=== PATIENT | male | born 1980 | race Caucasian/White ===

== ENCOUNTER 2016-10-10 21:32 | Emergency (ER) | payer BC ==
[~2016-10-10] VITALS: Ht 180.3 cm; Wt 78.2 kg
[2016-10-10 21:39] VITALS: BP 123/84; PULSE 85; RESP 16; TEMP 98.4; O2SAT 96
[2016-10-10] MEDS ORDERED: PRIL20CA9 PO (21:55)
[2016-10-10] MEDS ORDERED: CARA1TAB6 PO (22:14)
--- NOTE | 2016-10-10 22:15 | PD ---
HPI Chief Complaint: Abdominal Pain Time Seen by Provider: 22:02 Travel History International Travel<30 days: No Contact w/Intl Traveler<30days: No Traveled to known affect area: No History of Present Illness HPI This 35-year-old male has been having left upper quadrant pain about 2 weeks. He has been getting worse. She has nausea and occasionally vomits. He does say that under extraordinary amount of stress. He has been having family issues. Last week he went to [facility] and had a CT scan and blood work done and he was told that everything was normal. He has taken Prilosec for years because of acid reflux. He has been taking some ibuprofen sporadically. There has not been any dark stools. [facility] Past Medical History GERD: Yes Tetanus Vaccination: > 5 Years Influenza Vaccination: No Past Surgical History Surgical History: No Previous Surgery Social History Alcohol Use: Yes Tobacco Use: Yes Substance Use: No Allergies-Medications (Allergen,Severity, Reaction): Coded Allergies: Sulfa (Verified Allergy, Severe, Anaphylaxis, 10/10/16) Reported Meds & Prescriptions Reported Meds & Active Scripts Active Reported Prilosec (Omeprazole) 20 Mg Cap 20 Mg PO DAILY Review of Systems General / Constitutional: No: Fever, Chills Eyes: No: Diploplia, Blurred Vision HENT: No: Headaches, Vertigo Cardiovascular: No: Chest Pain or Discomfort, Palpitations Respiratory: No: Cough Gastrointestinal: Positive: Nausea, Abdominal Pain Genitourinary: No: Urgency, Frequency Musculoskeletal: No: Myalgias Skin: No Rash Neurologic: Positive: Dizziness, No: Focal Abnormalities Endocrine: No: Heat Intolerance Physical Exam Narrative GENERAL: Well-developed male SKIN: Warm and dry. HEAD: Atraumatic. Normocephalic. EYES: Pupils equal and round. No scleral icterus. No injection or drainage. ENT: No nasal bleeding or discharge. Mucous membranes pink and moist. NECK: Trachea midline. No JVD. CARDIOVASCULAR: Regular rate and rhythm. No murmur appreciated. RESPIRATORY: No accessory muscle use. Clear to auscultation. Breath sounds equal bilaterally. GASTROINTESTINAL: Abdomen soft, non-tender, nondistended. Hepatic and splenic margins not palpable. MUSCULOSKELETAL: No obvious deformities. No clubbing. No cyanosis. No edema. NEUROLOGICAL: Awake and alert. No obvious cranial nerve deficits. Motor grossly within normal limits. Normal speech. PSYCHIATRIC: Appropriate mood and affect; insight and judgment normal. Data Data Last Documented VS Vital Signs Date Time Temp Pulse Resp B/P Pulse Ox O2 Delivery O2 Flow Rate FiO2 10/10/16 21:39 98.4 85 16 123/84 96 MDM Medical Decision Making Medical Screen Exam Complete: Yes Emergency Medical Condition: Yes Medical Record Reviewed: Yes Differential Diagnosis Differential includes ulcer disease, splenic abnormality, gastritis Narrative Course Patient had a CT scan done last week and this was secondary to splenic abnormality or expected that would problem. His symptoms are suggestive of ulcer disease. I recommended that he increase his Prilosec to 20 twice a day and I will add Carafate to his regimen. Diagnosis Primary Impression: PUD (peptic ulcer disease) Additional Instructions: Increase Prilosec to twice daily Scripts Sucralfate (Carafate)1 Gm Tab1 Gm PO TID #90 TAB Ref 0 On empty stomach Prov:Garcia Fairchild MD 10/10/16 Disposition: 01 DISCHARGE HOME Condition: Stable Garcia Fairchild MD Oct 10, 2016 22:15
== END 2016-10-10 22:20 | disposition home or self-care (01) ==
LOC: PHED 21:32 → PHEFT 22:20
DX: K27.9 Peptic ulcer, site unspecified, unspecified as acute or chronic, without hemorrhage or perforation (principal); K21.9 Gastro-esophageal reflux disease without esophagitis; Z72.0 Tobacco use
CPT/HCPCS: 99283

== ENCOUNTER 2017-01-16 13:26 | Emergency (ER) | payer BC ==
[~2017-01-16] VITALS: Ht 180.3 cm; Wt 74.7 kg
[~2017-01-16 13:26] MED LIST: CARA1TAB6 PO; PRIL20CA9 PO
[2017-01-16 13:31] VITALS: BP 107/64; PULSE 106; RESP 18; TEMP 99.3; O2SAT 95
[2017-01-16] MEDS ORDERED: OMEP40CA2 PO (13:45)
[2017-01-16] MEDS ORDERED: AUGM875T3 PO (14:37)
--- NOTE | 2017-01-16 14:37 | PD ---
HPI Chief Complaint: Cold / Flu Symptoms Time Seen by Provider: 14:00 Travel History International Travel<30 days: No Contact w/Intl Traveler<30days: No Traveled to known affect area: No History of Present Illness HPI 36-year-old male presents emergency department for evaluation of sore throat. Patient reports proximately week ago he had an upper respiratory infection which included nasal congestion, sore throat and cough. He reports he woke up this morning and his throat was acutely painful. Severity 5 out of 10. He reports he has pain with swallowing but is not having difficulty eating or drinking. Denies change in voice. Reports subjective fevers. [facility] Past Medical History Medical History: Denies Significant Hx Diminished Hearing: No GERD: Yes Tetanus Vaccination: Unknown Social History Alcohol Use: Yes Tobacco Use: Yes Substance Use: No Allergies-Medications (Allergen,Severity, Reaction): Coded Allergies: Sulfa (Verified Allergy, Severe, Anaphylaxis, 10/10/16) Reported Meds & Prescriptions Reported Meds & Active Scripts Active Reported Omeprazole 40 Mg Cap 40 Mg PO DAILY Review of Systems Except as stated in HPI: all other systems reviewed are Neg Physical Exam Narrative GENERAL: Alert, well-appearing male nontoxic-appearing SKIN: Focused skin assessment warm/dry. HEAD: Atraumatic. Normocephalic. EYES: Pupils equal and round. No scleral icterus. No injection or drainage. ENT: No nasal bleeding or discharge. Mucous membranes pink and moist. Oropharynx erythema with tonsillar swelling and exudate equal bilaterally. NECK: Trachea midline. No JVD. CARDIOVASCULAR: Regular rate and rhythm. No murmur appreciated. RESPIRATORY: No accessory muscle use. Clear to auscultation. Breath sounds equal bilaterally. GASTROINTESTINAL: Abdomen soft, non-tender, nondistended. Hepatic and splenic margins not palpable. MUSCULOSKELETAL: No obvious deformities. No clubbing. No cyanosis. No edema. NEUROLOGICAL: Awake and alert. No obvious cranial nerve deficits. Motor grossly within normal limits. Normal speech. PSYCHIATRIC: Appropriate mood and affect; insight and judgment normal. Data Data Last Documented VS Vital Signs Date Time Temp Pulse Resp B/P Pulse Ox O2 Delivery O2 Flow Rate FiO2 01/16/17 13:31 99.3 106 18 107/64 95 Room Air MDM Medical Decision Making Medical Screen Exam Complete: Yes Emergency Medical Condition: Yes Differential Diagnosis Strep pharyngitis, viral pharyngitis, peritonsillar abscess Narrative Course 36-year-old male presents emergency department for evaluation of sore throat. On exam he is found to have oropharyngeal erythema with moderate amount of tonsillar swelling with exudate. His airway is patent. Voice is normal. Patient is able to eat and drink without difficulty. Patient will be treated with antibiotics and a dose of steroids here. Diagnosis Primary Impression: Pharyngitis Qualified Code: J02.9 - Pharyngitis, unspecified etiology Referrals: Primary Care Physician Additional Instructions: Take antibiotics as prescribed. During funnier fluids. Return to the emergency department if you develop new or worsening symptoms. Scripts Amoxicillin-Clavulanate (Augmentin)875-125 Mg Tab1 Tab PO BID #10 TAB Prov:Briana Hedrick 01/16/17 Disposition: 01 DISCHARGE HOME Condition: Stable Briana Hedrick Jan 16, 2017 14:37
[2017-01-16] MEDS ORDERED: DEXAMETHASONE SOD PHOS 4 MG/ML VIAL IM ONE (14:45)
== END 2017-01-16 14:58 | disposition home or self-care (01) ==
LOC: PHEFT 13:26
DX: J02.9 Acute pharyngitis, unspecified (principal)
CPT/HCPCS: 96372; 99284; J1100

== ENCOUNTER 2017-04-06 02:51 | Emergency (ER) | payer BC ==
[~2017-04-06] VITALS: Ht 180.3 cm; Wt 75.0 kg
[~2017-04-06 02:51] MED LIST changes: +AUGM875T3 PO; -CARA1TAB6 PO; +OMEP40CA2 PO; -PRIL20CA9 PO
[2017-04-06 02:55] VITALS: BP 123/86; PULSE 76; RESP 18; TEMP 97.5; O2SAT 98
[2017-04-06 03:09] VITALS: BP 123/86; PULSE 76; RESP 18; TEMP 97.5; O2SAT 98
--- NOTE | 2017-04-06 03:21 | PD ---
HPI Chief Complaint: Pain: Acute or Chronic Time Seen by Provider: 03:18 Travel History International Travel<30 days: No Contact w/Intl Traveler<30days: No Traveled to known affect area: No History of Present Illness HPI The patient is a 36-year-old male that complains of left-sided rib discomfort for 2 weeks. He denies any trauma. He denies any fever, cough and the discomfort is minimal, he has pain only on occasion. It is a dull discomfort, he says it feels like something might be in there. He smokes a pack a day. He denies any hemoptysis. He has no major medical problems. He states he came to the emergency room because he did not want to pay a deductible at the doctor's office. He does not have a primary care physician despite having fairly good insurance. The patient points to his lower left ribs or the discomfort is. The discomfort only comes on occasionally. He states that movements will reproduce the pain and it feels like something "snags" on that area. PFSH Past Medical History Diminished Hearing: No GERD: Yes Tetanus Vaccination: Unknown Influenza Vaccination: No Social History Alcohol Use: Yes Tobacco Use: Yes Substance Use: No Allergies-Medications (Allergen,Severity, Reaction): Coded Allergies: Sulfa (Sulfonamide Antibiotics) (Unverified Allergy, Severe, Anaphylaxis, 04/06/17) Reported Meds & Prescriptions Reported Meds & Active Scripts Active Reported Omeprazole 40 Mg Cap 40 Mg PO DAILY Review of Systems Except as stated in HPI: all other systems reviewed are Neg Physical Exam Narrative GENERAL: Well-nourished, well-developed patient in no respiratory distress. His vital signs are normal. SKIN: Focused skin assessment warm/dry. No skin rash is seen. HEAD: Normocephalic. EYES: No scleral icterus. No injection or drainage. NECK: Supple, trachea midline. No JVD or lymphadenopathy. CARDIOVASCULAR: Regular rate and rhythm without murmurs, gallops, or rubs. RESPIRATORY: Breath sounds equal bilaterally. No accessory muscle use. Lungs clear to auscultation bilaterally. No pleural rubs are heard. I cannot reproduce his pain by pressing on the ribs. GASTROINTESTINAL: Abdomen soft, non-tender, nondistended. MUSCULOSKELETAL: No cyanosis, or edema. BACK: Nontender without obvious deformity. No CVA tenderness. Data Data Last Documented VS Vital Signs Date Time Temp Pulse Resp B/P (MAP) Pulse Ox O2 Delivery O2 Flow Rate FiO2 04/06/17 03:13 18 04/06/17 03:09 97.5 76 123/86 (98) 98 Orders Orders Chest, Pa & Lat (04/06/17 03:40) MDM Medical Decision Making Medical Screen Exam Complete: Yes Emergency Medical Condition: Yes Medical Record Reviewed: Yes Interpretation(s) The chest x-ray is normal. The EKG is normal with sinus rhythm rate of 66. Differential Diagnosis Pleurisy, musculoskeletal pain, fractured rib-unlikely, pneumonia, chest discomfort etiology undetermined Narrative Course The patient likely has musculoskeletal pain. I cannot reproduce the pain by pressing directly on the ribs but it is reproduced by movements. This could also be a pleuritic-type pain. Impression: Atypical chest pain Diagnosis Primary Impression: Atypical chest pain Additional Instructions: As we discussed, discontinue smoking. Follow-up with a primary care physician, you have good insurance and you need to be properly followed. Med/Other Pt SpecificInfo: No Change to Meds Disposition: 01 DISCHARGE HOME Condition: Stable Alpesh Mercer MD Apr 06, 2017 03:21
--- NOTE | 2017-04-06 04:01 | RADRPT ---
EXAM DATE/TIME: 04/06/2017 03:43 [facility] COMPARISON: No previous studies available for comparison. INDICATIONS : Left rib pain. No known trauma. MEDICAL HISTORY : Ulcers. SURGICAL HISTORY : None. ENCOUNTER: Initial ACUITY: 1 day PAIN SCORE: 10 LOCATION: Left chest FINDINGS: PA and lateral views of the chest demonstrate the lungs to be symmetrically aerated without evidence of mass, infiltrate or effusion. The cardiomediastinal contours are unremarkable. Osseous structure s are intact. CONCLUSION: No evidence of acute cardiopulmonary disease. Wan Comer MD on April 06, 2017 at 3:58 Board Certified Radiologist. This report was verified electronically.
[2017-04-06] MEDS ORDERED: OMEP20TA PO (04:44)
[2017-04-06] MEDS ORDERED: CARA1TAB6 PO (04:44)
[2017-04-06 04:49] VITALS: BP 124/70; PULSE 74; RESP 18; O2SAT 98
--- NOTE | 2017-04-06 20:02 | EKG ---
Date Performed: 04/06/2017 Time Performed: 04:28:14 PTAGE: 36 years EKG: Sinus rhythm POSSIBLE RIGHT VENTRICULAR CONDUCTION DELAY BORDERLINE ECG NO PREVIOUS TRACING DOCTOR: Nini Rocha Interpretating Date/Time 04/06/2017 19:59:43
== END 2017-04-06 04:53 | disposition home or self-care (01) ==
LOC: PHED 02:51
DX: R07.89 Other chest pain (principal); R94.31 Abnormal electrocardiogram [ECG] [EKG]; F17.200 Nicotine dependence, unspecified, uncomplicated; Z87.19 Personal history of other diseases of the digestive system
CPT/HCPCS: 71020; 93005; 99283

== ENCOUNTER 2017-11-29 15:00 | Emergency (ER) | payer BC ==
[~2017-11-29] VITALS: Ht 180.3 cm; Wt 73.3 kg
[~2017-11-29 15:00] MED LIST changes: -AUGM875T3 PO; +CARA1TAB6 PO; +OMEP20TA93 PO
[2017-11-29 15:18] VITALS: BP 121/59; PULSE 76; RESP 16; TEMP 98.7; O2SAT 98
[2017-11-29] MEDS ORDERED: LIDOCAINE HCL 1% 50 ML VIAL XX ONE (15:30)
[2017-11-29] MEDS ORDERED: AZITHROMYCIN 250 MG TAB PO ONE (15:30)
[2017-11-29] MEDS ORDERED: cefTRIAXone 250 MG VIAL IM ONE (15:30)
--- NOTE | 2017-11-29 15:33 | PD ---
HPI Chief Complaint: Complaint Time Seen by Provider: 15:26 Travel History International Travel<30 days: No Contact w/Intl Traveler<30days: No Traveled to known affect area: No History of Present Illness HPI 37-year-old male presents to the emergency department for STD check. Patient states that his fiance was recently diagnosed with chlamydia. He would like to be tested and treated for the same. He denies any symptoms. No fevers or chills. No abdominal pain. No vomiting. No penile discharge. No testicular pain or swelling. He states that he takes omeprazole for GERD. No other medical problems. No pain. No exacerbating or alleviating factors. Mild severity. PFSH Past Medical History Diminished Hearing: No GERD: Yes Social History Alcohol Use: Yes Tobacco Use: Yes Substance Use: No Allergies-Medications (Allergen,Severity, Reaction): Coded Allergies: Sulfa (Sulfonamide Antibiotics) (Unverified Allergy, Severe, Anaphylaxis, 11/29/17) Reported Meds & Prescriptions Reported Meds & Active Scripts Active Omeprazole 20 Mg Tab 20 Mg PO DAILY Carafate (Sucralfate) 1 Gram Tab 1 Gm PO QID On empty stomach Reported Omeprazole 40 Mg Cap 40 Mg PO DAILY Review of Systems Except as stated in HPI: all other systems reviewed are Neg Physical Exam Narrative GENERAL: Well-nourished, well-developed male patient, ambulatory. Afebrile. SKIN: Focused skin assessment warm/dry. HEAD: Normocephalic. Atraumatic. EYES: No scleral icterus. No injection or drainage. NECK: Supple, trachea midline. No JVD or lymphadenopathy. CARDIOVASCULAR: Regular rate and rhythm without murmurs, gallops, or rubs. RESPIRATORY: Breath sounds equal bilaterally. No accessory muscle use. Lung sounds are clear to auscultation. GASTROINTESTINAL: Abdomen soft, non-tender, nondistended. MUSCULOSKELETAL: No cyanosis, or edema. BACK: Nontender without obvious deformity. No CVA tenderness. Data Data Last Documented VS Vital Signs Date Time Temp Pulse Resp B/P (MAP) Pulse Ox O2 Delivery O2 Flow Rate FiO2 11/29/17 15:18 98.7 76 16 121/59 (79) 98 Orders Orders Gc And Chlamydia Pcr (11/29/17 15:29) Azithromycin (Zithromax) (11/29/17 15:30) Ceftriaxone Inj (Rocephin Inj) (11/29/17 15:30) Lidocaine 1% Inj (50 Ml) (Xylocaine 1% I (11/29/17 15:30) MDM Medical Decision Making Medical Screen Exam Complete: Yes Emergency Medical Condition: Yes Medical Record Reviewed: Yes Differential Diagnosis STD versus urethritis versus medical clearance Narrative Course 37-year-old male presents to the emergency department for evaluation of possible STD. He has no symptoms or complaints at this time. Urine is sent for chlamydia and gonorrhea. He is given Rocephin 250 mg IM and azithromycin 1 g p.o. The patient was discharged in stable condition with instructions, including return instructions and follow up instructions. Diagnosis Primary Impression: Exposure to STD Referrals: Primary Care Physician call for appointment Patient Instructions: General Instructions, Sexually Transmitted Diseases (ED) Additional Instructions: Follow-up with a primary care physician. Return to the emergency department for any acute worsening of symptoms. Med/Other Pt SpecificInfo: No Change to Meds Disposition: 01 DISCHARGE HOME Condition: Stable Li Langford Nov 29, 2017 15:33
[2017-11-29] MEDS ORDERED: LIDOCAINE HCL 1% PF 30 ML VIAL ONE (15:49)
== END 2017-11-29 16:41 | disposition home or self-care (01) ==
LOC: PHEFT 15:00
DX: Z20.2 Contact with and (suspected) exposure to infections with a predominantly sexual mode of transmission (principal); K21.9 Gastro-esophageal reflux disease without esophagitis; Z79.899 Other long term (current) drug therapy; Z88.2 Allergy status to sulfonamides; Z72.0 Tobacco use
CPT/HCPCS: 87491; 87591; 96372; 99283; J0696